=== PATIENT | female | born 1970 | race Caucasian/White ===

== ENCOUNTER 2024-06-16 12:23 | Outpatient (CLI) | payer MEDICAID, SELFPAY ==
[2024-06-16 16:46] LABS: Basophils # 0.1 K/mm3 (0-0.2); Eosinophils # 0.1 K/mm3 (0.0-0.4); Eosinophils % 2.2 % (0.1-12.0); Hemoglobin 12.9 g/dL (12.2-16.2); Lymphocytes % 39.2 % (10-50); Mean Corpuscular HGB Conc 33.1 g/dL (31.8-35.4); Mean Corpuscular Hemoglobin 30.8 pg (27.0-31.2); Mean Corpuscular Volume 93.2 fl (81-99); Mean Platelet Volume 7.1 fl (7.4-10.4); Monocytes # 0.3 K/mm3 (0.1-1.0); Monocytes % 6.6 % (1.7-9.3); Neutrophils # 2.6 K/mm3 (1.8-7.8); Platelet Count 330 K/mm3 (142-424); Red Blood Count 4.19 M/mm3 (4.20-5.40); Red Cell Distribution Width 14.2 % (11.5-17.5); White Blood Count 5.1 K/mm3 (4.8-10.8)
[2024-06-16 17:14] LABS: Erythrocyte Sedimentation Rate 16 mm/hr (0-30)
[2024-06-16 17:18] LABS: Alanine Aminotransferase 26 U/L (12-78); Albumin Level 4.3 g/dl (3.5-5.0); Albumin/Globulin Ratio 1.9 (1.1-1.8); Alkaline Phosphatase 90 U/L (38-126); Anion Gap 7.8 mEq/L (5-15); Aspartate Amino Transferase 28 U/L (14-36); Bilirubin,Total 0.6 mg/dl (0.2-1.3); Blood Urea Nitrogen 13 mg/dl (7-17); Calcium 8.8 mg/dl (8.4-10.2); Carbon Dioxide 26 mmol/L (22.0-30.0); Chloride 105 mmol/L (98-107); Estimated Glomerular Filt Rate 87 ml/min (>60); GFR (African American) 105 ML/MIN (>60); Globulin 2.3 g/dL (1.3-3.2); Glucose 80 mg/dl (74-100); Potassium 3.8 mmoL/L (3.5-5.1); Sodium 135 mmol/L (136-145); Total Protein,Serum 6.6 g/dl (6.3-8.2); Uric Acid 4.2 mg/dl (2.5-6.2)
[2024-06-16 17:36] LABS: 25-OH Vitamin D, Total 39.8 ng/mL (30-100)
[2024-06-16 18:16] LABS: Hemoglobin A1C 5.4 % (4.0-6.0)
[2024-06-16 19:25] LABS: Ferritin 75.7 ng/ml (11.1-264)
[2024-06-16 21:40] LABS: Thyroid Stimulating Hormone 1.68 uIU/mL (0.465-4.68)
[2024-06-16 21:59] LABS: Vitamin B12 525 pg/mL (239-931)
[2024-06-17 11:59] LABS: RA Latex Turbid. <10.0 IU/mL (<14.0)
[2024-06-19 11:16] LABS: Lyme B. burgdorferi PCR Blood Negative (Negative)
[2024-07-09 08:36] LABS: Antinuclear Antibodies, IFA POSITIVE
== END 2024-06-16 23:59 | disposition home or self-care (01) ==
LOC: LAB.DROPOF 06-17 12:23
PROVIDERS: PCP Nurse Practitioner Family; Visit Provider Nurse Practitioner Family
DX: M25.50 Pain in unspecified joint (principal); R20.0 Anesthesia of skin; R20.2 Paresthesia of skin; M79.10 Myalgia, unspecified site
CPT/HCPCS: 80050; 80053; 82306; 82607; 82728; 83036; 83735; 84443; 84550; 85025; 85651; 86038; 86431; 87476

== ENCOUNTER 2024-11-04 13:38 | Outpatient (CLI) | payer MEDICAID, SELFPAY ==
--- NOTE | 2024-11-04 13:39 | MM_ITS ---
PROCEDURE INFORMATION: Exam: MG Bilateral Screening 3D Mammography Exam date and time: 11/04/2024 1:47 PM Age: 54 years old Clinical indication: Screening. No family history of breast cancer. TECHNIQUE: Imaging protocol: Bilateral Screening tomosynthesis and 2D mammography including computer-aided detection (CAD) when performed. COMPARISON: 1. MG MA-MAMMO SCREENING 3D TIERRA BILATERAL 02/08/2024 2:06 PM 2. MG MA-MAMMO ADDITIONAL VIEWS 3D TIERRA LT 07/19/2022 2:18 PM 3. MG MA-MAMMO SCREENING 3D TIERRA BILATERAL 07/13/2022 12:27 PM 4. MG MA-MAMMO SCREENING 3D TIERRA BILATERAL 12/31/2019 2:49 PM FINDINGS: MAMMOGRAPHY: Breast composition: There are scattered areas of fibroglandular density. Mass: None. Architectural distortion: None. Calcifications: No suspicious calcifications. Asymmetric density: None. Skin thickening: None. Axillary adenopathy: None. IMPRESSION: No mammographic evidence of malignancy. Annual screening is recommended unless otherwise clinically indicated. ASSESSMENT: BI-RADS Category 1: Negative.
== END 2024-11-04 23:59 | disposition home or self-care (01) ==
LOC: RAD 13:39
PROVIDERS: PCP Nurse Practitioner Family; Visit Provider Obstetrics & Gynecology
DX: Z12.31 Encounter for screening mammogram for malignant neoplasm of breast (principal)
CPT/HCPCS: 77063; 77067

== ENCOUNTER 2025-01-06 12:08 | Outpatient (CLI) | payer MEDICAID, SELFPAY ==
--- NOTE | 2025-01-06 11:45 | CA_ITS ---
FINAL REPORT TECHNIQUE: Ultrasound images of the deep venous system were obtained from the left groin to the calf veins. CLINICAL HISTORY: pain in posterior left leg FINDINGS: The deep venous system is normally compressible. Normal flow is identified. There is a 3.1 cm fluid collection in the popliteal fossa consistent with a Godinez's cyst. IMPRESSION: No evidence of left lower extremity DVT. Reviewed, Interpreted and Dictated by Papo Us MD Transcribed by Mary Donovan Authenticated and [facility]
--- NOTE | 2025-01-06 12:24 | XR_ITS ---
FINAL REPORT CLINICAL HISTORY: right knee pain and swelling FINDINGS: RIGHT KNEE Three views were obtained. There is no fracture or dislocation. The joint spaces appear normal. There is soft tissue edema anterior to the patella measuring 1.5 cm. IMPRESSION: Soft tissue edema without acute bony abnormality. Reviewed, Interpreted and Dictated by Papo Us MD Transcribed by Mary Donovan Authenticated and [facility]
--- NOTE | 2025-01-06 12:24 | XR_ITS ---
FINAL REPORT CLINICAL HISTORY: left knee pain and swelling FINDINGS: LEFT KNEE Three views were obtained. There is no fracture or dislocation. There are minimal hypertrophic changes at the medial and lateral joint margins. Minimal joint effusion is identified. There is soft tissue edema anterior to the patella measuring 1.7 cm. IMPRESSION: Soft tissue edema without acute bony abnormality. Reviewed, Interpreted and Dictated by Papo Us MD Transcribed by Mary Donovan Authenticated and [facility]
== END 2025-01-06 23:59 | disposition home or self-care (01) ==
LOC: RT 12:09
PROVIDERS: PCP Nurse Practitioner Family; Visit Provider Nurse Practitioner Family
DX: M79.89 Other specified soft tissue disorders (principal); M25.561 Pain in right knee; M25.562 Pain in left knee; M25.461 Effusion, right knee; M25.462 Effusion, left knee
CPT/HCPCS: 73562; 93971

== ENCOUNTER 2025-01-20 12:28 | Outpatient (CLI) | payer MEDICAID, SELFPAY ==
[2025-01-20 13:27] LABS: Basophils # 0.1 K/mm3 (0-0.2); Basophils % 0.8 % (0.1-2.0); Eosinophils # 0.4 Kmm3 (0.0-0.4); Eosinophils % 6.2 % (0.1-12.0); Hematocrit 34.1 % (37.0-47.0); Hemoglobin 10.9 g/dL (12.2-16.2); Immature Granulocytes # 0.02 10^3uL; Immature Granulocytes % 0.3 %; Lymphocytes # 1.9 K/mm3 (0.7-4.5); Lymphocytes % 29.5 % (10-50); Mean Corpuscular Hemoglobin 29.1 pg (27.0-31.2); Mean Corpuscular Volume 91.2 fl (81-99); Mean Platelet Volume 8.7 fl (7.4-10.4); Monocytes # 0.6 K/mm3 (0.1-1.0); Monocytes % 9.1 % (1.7-9.3); Neutrophils # 3.6 K/mm3 (1.8-7.8); Neutrophils % 54.1 % (37.0-80.0); Nucleated Red Blood Cells # 0 10^3/uL; Nucleated Red Blood Cells % 0 %; Platelet Count 311 K/mm3 (142-424); Red Blood Count 3.74 M/mm3 (4.20-5.40); Red Cell Distribution Width 13.9 % (11.5-17.5); White Blood Count 6.6 K/mm3 (4.8-10.8)
[2025-01-20 14:09] LABS: 25-OH Vitamin D, Total 43.9 ng/mL (30-100)
[2025-01-20 14:42] LABS: Vitamin B12 631 pg/mL (239-931)
[2025-01-24 09:50] LABS: Lyme B. burgdorferi PCR Blood Negative (Negative)
== END 2025-01-20 23:59 | disposition home or self-care (01) ==
LOC: LAB 12:29
PROVIDERS: PCP Nurse Practitioner Family; Visit Provider Nurse Practitioner Family
DX: S70.362A Insect bite (nonvenomous), left thigh, initial encounter (principal); T14.8XXA Other injury of unspecified body region, initial encounter; M79.7 Fibromyalgia; W57.XXXA Bitten or stung by nonvenomous insect and other nonvenomous arthropods, initial encounter; E53.8 Deficiency of other specified B group vitamins
CPT/HCPCS: 36415; 82306; 82607; 85025; 87476

== ENCOUNTER 2025-02-10 16:53 | Outpatient (CLI) | payer MEDICAID, SELFPAY ==
--- OUTSIDE RECORDS SUMMARY | 2023-12-26 05:45 | XMS_ITS ---
Author Organization [facility] 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 fractured left hand. XR taken 12/20 Encounters Encounter Location Date Provider Diagnosis [facility] Office [address] [place] [phone] 12/26/2023 SOPHIA DEJESUS Plan Of Treatment No Information Progress Notes * Linda HARVEYOB:1970 (54 yo F)Acc No.[id number]:12/26/2023 Progress Notes Patient: Mily URIBE Provider: Alli DEJESUS MD :1970 A ge:53 Y S ex:Female Date:12/26/2023 Address:[address] [place] [address] , [address], [id number] Pcp: Subjective: * Chief Complaints: * 1 . Patient presents today for follow-up after Emergency Room visit to [facility] . fractured left hand. XR taken 12/20. * HPI: C onstitutional: 53 year old female presents with c/o the following: _ . Injury _ . Dominant hand is _ . The patients pain level on a scale of 1 to 10 is _ .? Pain is described as _ . This has been going on for approximately _ . Symptoms occur _ . Associated symptoms include _ . Any prior treatment for this problem? _ . Consultation T he patient is referred by to determine definitive care. The consultation report from our visit will be provided with our findings and planned follow up. Prior testing? Y es/No? Y es Are you Diabetic? Y es/No: _ ___ QuickDASH _ ____. O steoporosis Assessment:: Are you being seen today for a fracture? Y es/No? _ ____ H istory: Roomer details R oom number . * ROS: C ardiology: Patient denies c irculation problems. R espiratory: Shortness of breath N o. W heezing N o. ? M usculoskeletal: Joint pain p er HPI. N eurology: Tingling p er HPI. * Medical History: Objective: * Vitals: * Examination: G eneral examination: I MPRESSION: 1. Acute nondisplaced intra-articular fracture of the distal left radius. Assessment: Plan: * Treatment: * Billing Information: * Visit Code: * Procedure Codes: Images * Examination/be2 Examination/be1 * Electronic signature of LINA DEJESUS M.D. on 02/10/2025 at 04:55 PM EDT Sign off status: Pending * Provider: Alli DEJESUS MD Date: 0 12/26/2023 Generated for Mabel goldstein/Denise/Brandy on: 02/10/2025 04:55 PM EDT History and Physical Notes * HPI (History of Present Illness) Category Sub-Category Detail Notes Category Not es Constitutional Dominant hand is This has been going on for approximately Symptoms occur Associated symptoms include Any prior treatment for this problem? __ the following: The patients pain level on a scale of 1 to 10 is Pain is described as Injury Prior testing? Yes/No?: Yes Consultation The patient is refer red by to determine definitive care. The consultation report from our visit will be provided with our findings and planned follow up QuickDASH Are you Diabetic? Yes/No:: ____ Osteoporosis Assessment: Are you being seen toda y for a fracture? Yes/No?: History Roomer details Room number: . Examination Category Sub-Category Detail Notes Category Not es General examination IMPRESSION: 1. Acute nondisplaced intra-articular fracture of the distal left radius.
--- OUTSIDE RECORDS SUMMARY | 2025-02-10 16:55 | XMS_ITS | Patient Health Record ---
Author Organization [facility] Address [address] [place] [phone] Care Team Providers Care Neurology Technician Name Role Phone Paddy Hui APRN Primary Care Provider SOPHIA Carbajal [facility] [phone] Reason For Referral No Information Plan Of Treatment No Information Insurance Providers Payer Name Payer Address Payer Phone Subscriber Number Group Number Insured Name Patient Relationship to Insured Coverage Start Date Coverage End Date [employer] [address] [place], [place] [id number] Mily Castillo Self - patient is the insured
--- NOTE | 2025-02-10 17:00 | MR_ITS ---
PROCEDURE INFORMATION: Exam: MR Left Lower Extremity Joint Without Contrast, Knee Exam date and time: 02/10/2025 4:59 PM Age: 54 years old Clinical indication: Swelling in left knee , pain , popping and instability to left knee , unknown injury; Additional info: Knee pain TECHNIQUE: Imaging protocol: Magnetic resonance imaging of the left lower extremity joint without contrast. Exam focused on the knee. COMPARISON: CR XR KNEE LT 3V 01/06/2025 12:38 PM FINDINGS: Bones/joints: Moderate increased T2 signal involving the medial tibial plateau has differential diagnosis of edema related to arthrosis versus bone contusion. Severe medial and patellofemoral compartment arthrosis. Moderate lateral compartment arthrosis. Moderate volume joint effusion. Medial meniscus: Increased STIR/PD signal involving the medial meniscus compatible with moderate degenerative changes without discrete tear. Lateral meniscus: Unremarkable. No tear. Anterior cruciate ligament: Complete ACL tear. Posterior cruciate ligament: Moderate thickening and increased T2 signal of the PCL compatible with mild degenerative changes. Medial capsule and supporting structures: Moderate thickening and increased T2 signal involving the tibial segment of the MCL compatible with low-grade injury. Lateral capsule and supporting structures: Unremarkable. No tear. Extensor mechanism of knee: Unremarkable. No tear. Soft tissues: Moderate thickening and increased T2 signal involving the medial head of the gastrocs with split tear at the footprint. IMPRESSION: 1. Complete ACL tear. 2. Moderate thickening and increased T2 signal of the PCL compatible with mild degenerative changes. 3. Moderate thickening and increased T2 signal involving the medial head of the gastrocs with split tear at the footprint. 4. Increased STIR/PD signal involving the medial meniscus compatible with moderate degenerative changes without discrete tear. 5. Moderate thickening and increased T2 signal involving the tibial segment of the MCL compatible with low-grade injury. 6. Moderate increased T2 signal involving the medial tibial plateau has differential diagnosis of edema related to arthrosis versus bone contusion. 7. Severe medial and patellofemoral compartment arthrosis. 8. Moderate lateral compartment arthrosis.
== END 2025-02-10 23:59 | disposition home or self-care (01) ==
LOC: RAD 16:54
PROVIDERS: PCP Nurse Practitioner Family; Visit Provider Physician Assistant
DX: S83.512A Sprain of anterior cruciate ligament of left knee, initial encounter (principal); S86.112A Strain of other muscle(s) and tendon(s) of posterior muscle group at lower leg level, left leg, initial encounter; M17.12 Unilateral primary osteoarthritis, left knee; R93.6 Abnormal findings on diagnostic imaging of limbs
CPT/HCPCS: 73721

== ENCOUNTER 2025-02-17 12:11 | Outpatient (CLI) | payer MEDICAID, SELFPAY ==
--- OUTSIDE RECORDS SUMMARY | 2023-12-26 05:45 | XMS_ITS ---
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 fractured left hand. XR taken 12/20 Encounters Encounter Location Date Provider Diagnosis [facility] Office [address] [place] [phone] 12/26/2023 SOPHIA DEJESUS Plan Of Treatment No Information Progress Notes * Linda HARVEYOB:1970 (54 yo F)Acc No.[id number]:12/26/2023 Progress Notes Patient: Mily URIBE Provider: Alli DEJESUS MD :1970 A ge:53 Y S ex:Female Date:12/26/2023 Address:[address] [place] [address] , [address], [id number] Pcp: Subjective: * Chief Complaints: * 1 . Patient presents today for follow-up after Emergency Room visit to [facility] . fractured left hand. XR taken [...] Electronic signature of LINA DEJESUS M.D. on 02/18/2025 at 10:45 AM EDT Sign off status: Pending * Provider: Alli DEJESUS MD Date: 0 12/26/2023 Generated for Mabel goldstein/Denise/Brandy on: 0 02/18/2025 10:45 AM EDT History and Physical Notes * HPI [...]
--- OUTSIDE RECORDS SUMMARY | 2025-02-11 09:30 | XMS_ITS | Encounter Summary ---
Author Organization Healthcare Address [address] 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 Name Role Phone Mary Ann Betancourt APRN Primary Care Provider [phone] Reason for Visit * Reason Comments Consult * Consultation (Routine) - Closed Specialty Diagnoses / Procedures Referred By Contac t Referred To Contact Rheumatology Diagnoses Positive KRISTEN (antinuclear antibody) Mary Ann Betancourt APRN [address] [place] [address] Phone: tel: fax: [facility] Medicine Specialties [address] [place] [address] Phone: tel: fax: Referral ID Status Reason Start Date Expiration Date V isits Requested Visits Authorized [id number] Closed Specialty Services Required 01/08/2025 07/10/2026 1 1 Encounter Details Date Type Department Care Team (Late st Contact Info) Description 02/11/2025 9:30 AM EDT Consult [facility] Medicine Specialties [address] [place] [address] Dick Osman, JUNITO [address] [place] [address] KRISTEN positive (Primary Dx); Arthralgia of both knees; Fibromyalgia; Raynaud's disease without gangrene; Esophageal dysphagia Social History Tobacco Use Types Packs/Day Years Used Date Smoking Tobacco: Never Smokeless Tobacco: Never Tobacco Cessation:Counseling Given: Not Answered PHQ-2 Answer Date Recorded Patient Health Questionnaire-2 Score 0 02/11/2025 AUDIT-C Answer Date Recorded Q1: How often do you have a drink containing alc ohol? Never 02/11/2025 Average Number of Drinks Not on file 025 Frequency of Binge Drinking Not on file 09/2024 Comments Unknown Sex and Gender Information Value Date Recorded Sex Assigned at Not on file Legal Sex Female 1:34 PM EDT Gender Identity Not on file Sexual Orientation Not on file documented as of this encounter Last Filed Vital Signs Vital Sign Reading Time Taken Comments Blood Pressure 126/83 02/11/2025 9:45 AM EDT Pulse 58 02/11/2025 9:45 AM EDT Temperature 37 C (98.6 F) 02/11/2025 9:45 AM EDT Respiratory Rate 16 02/11/2025 9:45 AM EDT Oxygen Saturation 97% 02/11/2025 9:45 AM EDT Inhaled Oxygen Concentration - - Weight 88.6 kg (195 lb 5.2 oz) 02/11/2025 9:45 A M EDT Height 154.9 cm (5' 1 ) 02/11/2025 9:45 AM EDT Body Mass Index 36.91 02/11/2025 9:45 AM EDT documented in this encounter Functional Status * Over the past 2 weeks, how often have you been bothered by any of the following problems? Question Answer Date of Assessment Author Little interest or pleasure in doing things Not at all 02/11/2025 9:53 AM EDT Sona Bolaños Feeling down, depressed, or hopeless Not at all 02/11/2025 9:53 AM EDT Sona Bolaños Patient Health Questionnaire -2 Score 0 02/11/2025 9:53 AM EDT Sona Bolaños documented as of this encounter Miscellaneous Notes * Dick Pride, JUNITO - 02/11/2025 10:32 AM EDT Images from the original note were not included. [id number] Dysphagia (Adult) Dysphagia is trouble swallowing. If you have dysphagia, you may have symptoms that include: ?? Choking or coughing when you eat or drink ?? Food getting stuck ?? Drooling ?? Inability to swallow ?? Pain behind the breastbone after swallowing ?? Vomiting after you eat or drink ?? Inhaling into the lungs (aspirating) foods or liquids when you swallow The main causes of dysphagia are problems that affect the mouth, throat or tongue. Dysphagia may becaused by a problem with the tube (esophagus) that carries food from the mouth to the stomach. These include blockage, swelling, or irritation from acid reflux or injury. An infection of the esophagus or an allergic reaction in the esophagus can also cause dysphagia. Problems in the brain, such as a stroke or Parkinson disease, can affect the muscles that coordinate swallowing. Dysphagia is treated by treating the cause. Your healthcare provider may evaluate you using X-ray, special esophagus monitors, a fiber optic look at swallowing, or an upper endoscopy. This test uses a thin, lighted tube (catheter) sent through your mouth to the esophagus. You may be given medicine t o reduce stomach acid or control muscle spasms. If the problem doesn't go away, you may have a procedure to widen (dilate) the esophagus. If you have muscle or nerve problems, you may be advised to see a speech or occupational therapist. They may give you exercises and instructions to help make eating safer. If you have an infection or allergic condition, your healthcare provide will prescribe medicine for it. Home care To help ease the symptoms of dysphagia: ?? Take any medicine you?ve been given exactly as directed. Ask for thickened liquid medicines if you need them. ?? To make eating easier: o Eat slowly. o Eat in a relaxed setting. o Don?t talk while you eat. o Take small bites. Chew slowly and completely before you swallow. o Sit upright during and after meals. Chewing food releases enzymes in your mouth that start the digestive process. Chew soft foods at least 5 to10 times. Chew more dense food, such as meats and vegetables, up to 30 times before swallowing. Count the number of times you chew until you get a sense of how soft the food needs to be before swallowing. o Don't eat dry bread products or meat fibers. o Puree solid foods if needed. Thicken liquids with milk, juice, broth, gravy, or starch to make them easier to swallow. o Ask your healthcare provider if a liquid diet may be better for you. o Ask for a referral to a accounts payable clerk if you are losing weight or having trouble getting enough food each day Follow-up care Follow up with your healthcare provider or as directed. Your healthcare provider can give you information about tests you may need. When to get medical advice Call your healthcare provider or get medical care right away for any of the following: ?? Inability to keep down food or liquid ?? Symptoms get worse quickly ?? Coughing that won't stop ?? Continuing to lose weight ?? Fever of 100.4??F (38??C) or higher, or as directed by your provider ?? Other symptoms as directed by your provider Call 911 Call 911 for any of the following: ?? Trouble breathing ?? Inability to talk ?? Drooling, inability to control secretions ?? Loss of consciousness Last Reviewed Date: 2024 00:00:00 ?? [id number] [employer]. All rights reserved. This information is not intended as a substitute for professional medical care. Always follow your healthcare professional's instructions. * [facility] Dick Osman APRN - 02/11/2025 10:32 AM EDT Images from the original note were not included. [id number] Managing Fibromyalgia ([place]) Fibromyalgia is a chronic illness that causes pain in specific points on the body, stiffness, and fatigue. But it doesn?t have to keep you from doing what you enjoy. You can feel better. You and yourhealthcare provider can work together to develop a plan. Take medications as directed You may be given medications to help reduce pain and improve sleep. Several medications are approved to treat fibromyalgia. Two were originally designed to treat depression. They are duloxetine, and milnacipran. A third, called pregaballin, was developed to treat nerve pain. Other medications include pain relievers such as acetaminophen or stronger narcotics. Thesemay be prescribed short term. NSAIDs (non-steroidal anti-inflammatory drugs) include aspirin, ibuprofen and naproxen are used to relieve pain. Get exercise Gentle exercise can help lessen your pain. Try these tips: ?? Choose activities that are gentle on your joints, such as walking, biking, and swimming or otherwater exercises. ?? Don?t push yourself too hard. Build up your strength and endurance slowly, over time. ?? Stick to it. For the most relief, exercise should become part of your daily life. Get a good night?s rest To help you get more sleep, try the tips below: ?? Sleep only in a bed, not on a couch or chair. ?? Don?t watch TV, read, or work in bed. ?? Go to bed and get up at the same time each day. ?? Try to avoid naps. ?? Avoid alcohol, caffeine, and tobacco for at least 3 hours before going to bed. ?? Avoid fluids in the evening to avoid having to get up to urinate. Other things you can do No one knows what causes fibromyalgia. But stress, poor eating habits, and extra weight can make itworse. These tips may help you feel better: ?? Eat a balanced diet with plenty of fruits and vegetables, whole grains, lean protein, and low-fat or nonfat dairy products. ?? Maintain a healthy weight. ?? Learn ways to reduce or manage the stress in your life. ?? Ask your healthcare provider for resources to help you make changes. Or check out the resources below. ?? Plan your activities. Set small goals and divide them over the day. ?? Pace yourself. Do tougher chores early in the day. Resources ?? Arthritis Foundation www.arthritis.org ?? National Fibromyalgia Association www.fmaware.org ?? [place] Fibromyalgia Syndrome Association www.afsafund.org Last Reviewed Date: 2015 00:00:00 ?? [id number] [employer]. [address] [place] [address]. All rights reserved. This information is not intended as a substitute for professional medical care. Always follow your healthcare professional's instructions. * Lety Freitas - Dick Osman APRN - 02/11/2025 10:32 AM EDT Images from the original note were not included. 61523 Understanding Fibromyalgia People with fibromyalgia tend to have at least 11 of the 18 tender points shown above. Fibromyalgia is a condition that causes pain at specific points on the body, stiffness, and fatigue. What are the symptoms of fibromyalgia? In most cases, you will have tender points on your body. These points are very sore, especially when touched. Finding several of these points helps your healthcare provider diagnose fibromyalgia. Along with the tender points, you may have some or all of the following symptoms: ?? Constant tiredness (fatigue), even after a full night?s sleep (non- restorative sleep) ?? A burning or throbbing pain in many parts of the body (this pain may vary during the day) ?? Stiffness or aching all over your body ?? Numbness or tingling in your arms and legs ?? Trouble sleeping ?? Bowel problems (bloating, diarrhea, constipation) ?? Headaches ?? Depression How is fibromyalgia diagnosed? There is no lab test to diagnose fibromyalgia. Instead, your healthcare provider will take your health history and examine your joints and muscles. Certain criteria are used when diagnosing fibromyalgia. Symptoms need to be present for at least 3 months. Tests may be done to rule out other conditions with similar symptoms. Then, together you can design a plan to help you manage your symptoms. How is fibromyalgia treated? Several medications including anti-depressants, NSAIDS (nonsteroidal anti- inflammatory drugs) Pregaballin, and Milnacipran have been helpful to treat fibromyalgia. NSAIDs (nonsteroidal anti-inflammatory drugs) including aspirin, ibuprofen, and naproxen are used to relieve pain. Getting enough sleep, regular exercise, and eating a healthy diet can help manage symptoms. Cognitive behavioral therapy (a form of psychotherapy) can be helpful for fibromyalgia. Some people find alternative treatments such as massage, chiropractic treatments, biofeedback, or acupuncture also helpwith symptoms. For more information go to : http://www.rheumatology.org/I-Am-A/Patient-Caregiver/Diseases-Condition s/Fibromyalgia Last Reviewed Date: 2015 00:00:00 ?? [id number] [employer]. [address] [place] [address], [place] [address]. All rights reserved. This information is not intended as a substitute for professional medical care. Always follow your healthcare professional's instructions. * Lety [facility] - Dick Osman APRN - 02/11/2025 10:32 AM EDT Images from the original note were not included. 48822 Raynaud Disease Your healthcare provider has told you that you have Raynaud disease. It's also called Raynaud phenomenon (RP) or Raynaud syndrome. There's no cure for Raynaud disease. But you can manage it to help prevent attacks. What are the symptoms of Raynaud disease? A Raynaud disease attack is often triggered by cold or stress. During an attack, blood vessels suddenly narrow (called vasospasm). This most often happens in fingers and toes. In rare cases, the nose, ears, nipples, or even tongue are affected. Narrowed blood vessels reduce the blood supply to the area. The area then turns white, blue, or red. The area may feel tingling, numb, or painful. As the attack passes, the blood vessels open. The affected area may turn bright red as it warms up, then returns to normal color. What is the cause of Raynaud disease? With Raynaud disease, it's believed that blood vessels in the affected areas respond too strongly to certain triggers, such as cold. This makes them narrow (called vasospasm) much more than in peoplewithout the disease. Experts don?t know what causes the blood vessels to react so strongly to certain triggers. In between attacks, the blood vessels are normal and healthy. Attacks don?t permanentlydamage the blood vessels. But they may thicken the artery jean. In some cases, Raynaud disease happens along with another disease or condition. This is often a connective tissue disorder, such as lupus, scleroderma, or rheumatoid arthritis. This is called secondary Raynaud disease (as opposed to primary Raynaud disease discussed above) and may be more severe. If this is the case for you, you and your healthcare provider can discuss treatment for the underlying condition. What are the risk factors? Risk factors for Raynaud disease include: ?? Women are more likely to get Raynaud disease than men. ?? Younger people are at higher risk, often ages 15 to 30. ?? Living in colder climates increases risk. ?? Having a family member with Raynaud disease increases your risk. ?? Underlying rheumatoid conditions may increase your risk. What are possible triggers? Triggers for Raynaud disease include: ?? Cold . Even slight temperature changes can cause an attack. This includes walking into the refrigerated section in the food store. ?? Stress. This causes the body to activate certain substances in the blood vessels that tell the vessels to narrow. ?? Caffeine. ?? Smoking. This causes the blood vessels to narrow. It can make the condition worse. ?? Repetitive movements. ?? Certain medicines. These include beta-blockers, migraine medicine, control pills, and others. ?? Injury. ?? Emotions. Being startled can cause an attack of RD. That's because the startle reflex releases substances that tell the vessels to narrow. How is Raynaud disease diagnosed? Your description of your symptoms, a health history, and a physical exam are often enough for a diagnosis. Blood tests and other tests may be done to see if any underlying conditions are present and rule out other problems. How is Raynaud disease treated? There is no known cure for Raynaud disease. But you can learn to manage symptoms and reduce the number and severity of attacks. For most people, staying away from triggers may be enough to limit attacks. Your healthcare provider may advise you to: ?? Take safety steps to help prevent your hands and feet from losing circulation. This includes: o Dressing warmly in cold weather. o Wearing gloves or mittens when your hands may become cold, such as when you use the refrigerator or freezer. o Not keeping the air conditioning at a low temperature in summer. o Staying away from stress and caffeine. o Exercising regularly. This may reduce the number and severity of attacks. o Quitting smoking, if you smoke. Quitting may improve the condition. This is because smoking causes your blood vessels to narrow and reduces blood flow. ?? Soak your hands or feet in warm (not hot) water. Do this at the first sign of an attack. Keep soaking until your skin color returns to normal. In some people, symptoms are lasting or troubling. For these cases, other treatments are a choice. Your healthcare provider can tell you more about these: ?? Prescription medicines. Some medicines that relax and widen blood vessels, such as calcium channel blockers. These may help ease symptoms. ?? Nerve surgery. This is used for severe cases that don?t respond to other treatments. Surgery removes the nerves around the blood vessels in the hands and feet. Without nerve stimulation, the bloodvessels stay more relaxed. They're less likely to become very narrow due to stimuli. Nerves may be blocked using injections in some cases. If attacks are severe, last for a long time, or occur very often, skin damage and sores (skin ulcers) may result. Controlling attacks can help prevent this. When to get medical care The following problems happen rarely, but they can be serious. Call your healthcare provider right away if you notice any of these: ?? Skin infection or sores ?? A finger or toe turns black ?? The skin breaks open on its own ?? A rash ?? A finger or toe joint becomes painful or swollen Last Reviewed Date: 2023 00:00:00 ?? [id number] [employer]. All rights reserved. This information is not intended as a substitute for professional medical care. Always follow your healthcare professional's instructions. * Progress Notes - Dick Osman APRN - 02/11/2025 9:30 AM EDT Images from the original note were not included. Dick Osman APRN Rheumatology Subjective HPI Mily Castillo is a 54 y.o. female with PMH significant for constipation, fms, depression, PTSD, HALLIE,s/p hernia repair, CTS release, ccy, hysterectomy who mentioned to her pcp that she was dx with lupus by an outside rheum with negative blood work and requested second opinion. She was referred here s ubsequently. KRISTEN 1:160 nuclear dot. She is here to get second opinion- she was not happy with them 2/2 communication issues. She is having knee pain- x1 month, had an mri recently; previous rheum did xrays but never got results. Knee is swollen constantly. Worse with cold, heat isn't helping. FMS under control. Cymbalta, tizanidine and gbp. She has had this for years. CCY, double hernia didn't fix though she was told. Can have acute flares that paralyze her. Had whole body pain primarily of the lower back. ?lupus from blood work. Chronic joint pain. Joints affected: Knees- AMS a few minutes until active; swelling L knee Whole body- better with movement (stiffness) Vitals: 02/11/25 0945 BP: 126/83 Pulse: 58 Resp: 16 Temp: 37 ??C (98.6 ??F) SpO2: 97% Allergies[1] Current Medications[2] Initial Rheum ROS Rheumatological ROS positive for sicca, raynauds, gerd/dysphagia, Family History: FH of autoimmune diseases? 3 kids all with lupus Social History: Exposure to HCV, HBV, HIV or TB. neg hx IV drug use. neg hx of tobacco use. neg hx of alcohol use or abuse. neg Occupational hx: disabled Review of Systems Constitutional: Positive for fatigue. Musculoskeletal: Positive for arthralgias and joint swelling. Psychiatric/Behavioral: Positive for sleep disturbance. Physical Exam Vitals reviewed. Constitutional: General: She is not in acute distress. Appearance: Normal appearance. She is not ill-appearing, toxic-appearing or diaphoretic. HENT: Head: Normocephalic and atraumatic. Mouth/Throat: Mouth: Mucous membranes are dry. Eyes: Extraocular Movements: Extraocular movements intact. Conjunctiva/sclera: Conjunctivae normal. Cardiovascular: Rate and Rhythm: Normal rate and regular rhythm. Pulses: Normal pulses. Pulmonary: Effort: Pulmonary effort is normal. No respiratory distress. Musculoskeletal: General: No swelling or tenderness. Normal range of motion. Cervical back: Normal range of motion. Right lower leg: No edema. Left lower leg: No edema. Skin: General: Skin is warm and dry. Capillary Refill: Capillary refill takes less than 2 seconds. Coloration: Skin is not jaundiced or pale. Findings: No lesion or rash. Neurological: General: No focal deficit present. Mental Status: She is alert and oriented to person, place, and time. Gait: Gait normal. Psychiatric: Mood and Affect: Mood normal. Behavior: Behavior normal. Thought Content: Thought content normal. The following portions of the chart were reviewed this encounter and updated as appropriate: Patient global assessment: 0/10 Swollen Joint Count: Swollen: 1 Tender Joint Count: Tender: 1 = (x2) CDAI:2 Rapid 3 score: 14.7/30 CDAI Interpretation: 0-2.8 Remission 2.9 -10 Low disease activity 10.1-22.0 Moderate Activity 22.1-76.0 High Activity Assessment and Plan of Care: Plan of care developed with Mily Castillo on (02/11/25): 1. KRISTEN positive (Primary) 2. Arthralgia of both knees KRISTEN positive from an outside director case management with arthralgia both knees, left swelling as well as painful today on exam. MRI done last evening and we will attempt to get those results. We will attemptalso to get her previous rheumatology workup evaluation records. I will perform some element of this evaluation myself as I need to rule out alternative etiologies for her inflammatory joint pain however, most of her joint pain sounds more mechanical in osteoarthritic in nature. I need to check uric acid as I am concerned potentially about gout as she is taking high-dose NSAIDs without much help.I will not make any changes to her medication regimen of the current time. - Antinuclear Antibody (KRISTEN), HEp-2, IgG; Future - Double-Stranded DNA (dsDNA) Antibody, IgG by IFA; Future - C3 Complement; Future - C4 Complement; Future - ENAI; Future - ENAII; Future - Protein, Random, Urine with Creatinine; Future - Burdick (VIANEY) Antibody, IgG; Future - Thyroid Peroxidase Antibody; Future - C-Reactive Protein, Plasma; Future - Sedimentation Rate, Automated; Future - CBC and Differential; Future - Comprehensive Metabolic Panel, Plasma; Future - Uric acid; Future 3. Fibromyalgia Presumed diagnosis from a prior director case management in his well-controlled currently on gabapentin, tizanidine, and Cymbalta. Am uncertain about her subtype as well as the patient is a bit uncertain as towhy she was given these medicines though has improved. 4. Raynaud's disease without gangrene 5. Esophageal dysphagia No symptoms consistent with crest other than esophageal dysphagia and Raynaud's, no sclerodactyly, calcinosis, telangiectasias noted on exam. We will check systemic sclerosis antibodies for completeness. - Anti-scleroderma antibody; Future - RNA Polymerase III Antibody, IgG; Future - Centromere Antibody, IgG; Future RTC 4 mo Patient is agreeable to the above treatment plan and had no further questions. Thanks for the opportunity to participate in the care of this patient! If there are any questions or concerns, please reach out to me personally. Thanks! Dick Osman APRN Parts of this note were dictated using [employer] voice recognition software. As a result, errors may occur. When identified, these radial drill operator for plastic errors are corrected, but while every attempt is made to prevent/correct these, errors may still exist. Time Spent: I personally spent a total of minutes on this encounter. This time includes face to face with patient, counseling and discussion and/or coordination of care. minutes on the encounter. Thepatient was counseled about diagnostic results, instruction for management, risk factors reduction, prognosis, compliance with visits and treatment, risks and benefits of treatments options. Prior notes (by external physicians) and results were reviewed by me with independent interpretation of labsand imaging. My note will be sent to PCP and other consulting physicians. [1] No Known Allergies [2] Current Outpatient Medications Medication Sig Dispense Refill doxycycline (Vibramycin) 100 MG capsule TAKE ONE CAPSULE BY MOUTH TWICE DAILY FOR FOURTEEN DAYS -- FINISH ALL MEDICINE -- --TAKE WITH FOOD-- DULoxetine (Cymbalta) [address] capsule TAKE ONE CAPSULE BY MOUTH TWICE DAILY STOP FLUOXETINE FeroSul 325 (65 Fe) MG tablet Take 1 tablet by mouth 2 times a day. gabapentin (Neurontin) 300 MG capsule TAKE ONE CAPSULE BY MOUTH THREE TIMES DAILY MAY CAUSE DROWSINESS hydrOXYzine HCl (Atarax) 50 MG tablet Take 1 tablet by mouth 3 times a day as needed for anxiety. Linzess 145 MCG capsule naproxen (Naprosyn) 500 MG tablet TAKE ONE TABLET BY MOUTH TWICE DAILY --TAKE WITH FOOD-- omeprazole (PriLOSEC) [address] capsule tiZANidine (Zanaflex) 4 MG tablet No current facility-administered medications for this visit. documented in this encounter Plan of Treatment Upcoming Encounters Date Type Department Care Team (Late st Contact Info) Description 06/16/2025 10:30 AM EST Office Visit [facility] Medicine Specialties [address] [place] [address] Dick Osman APRN [address] [place] [address] documented as of this encounter Results * Protein, Random, Urine with Creatinine (02/11/2025 12:01 PM EDT) Protein, Urine 42 mg/dL 02/11/2025 1:10 PM EDT [facility] Creatinine, Urine 336 mg/dL 02/11/2025 1:10 PM EDT [facility] Protein/Creatin ine Ratio 0.1 mg/mg Creat 02/11/2025 1:10 PM EDT [facility] Urine Urine specimen obtained by clean catch procedure / Unknown Non-blood Collection / Unknown 02/11/2025 12:01 PM EDT 02/11/2025 12:01 PM EDT us Dick Osman APRN LAB URINE ORDERABLES Final Res ult [facility] [address] [place] [address] * Centromere Antibody, IgG (02/11/2025 11:21 AM EDT) Centromere Ab, IgG 0 0 - 40 AU/mL 02/12/2025 11:30 PM EDT [facility] ([facility]) Blood Venous blood specimen / Unknown Venipuncture / Unknown 02/11/2025 11:21 AM EDT 02/11/2025 11:21 AM EDT Narrative [facility] ([facility]) - 02/12/2025 11:30 PM EDT INTERPRETIVE INFORMATION: Centromere Ab, IgG 29 AU/mL or Less ............. Negative 30 - 40 AU/mL ................ Equivocal 41 AU/mL or Greater .......... Positive When detected by this multiplex bead assay, the presence of centromere antibodies is mainly associated with CREST syndrome, a variant of systemic sclerosis (SSc). These antibodies target the centromere B, a dominant antigen of the centromeric complex associated with the centromere pattern observed in antinuclear antibody (KRISTEN) testing by IFA. Centromere antibodies may also be seen in a varying percentage of patients with other autoimmune diseases, including diffuse cutaneous SSc, Raynaud syndrome, interstitial pulmonary fibrosis, autoimmune liver disease, systemic lupus erythematosus (SLE) and rheumatoid arthritis (RA). A negative result indicates no detectable IgG antibodies to centromere B. If the result is negative but clinical suspicion for SSc is strong, consider testing for KRISTEN by IFA along with other antibodies associated with SSc, including Scl-70, U3-EDUCATION AND DEVELOPMENT MANAGER, PM/Scl, or Th/To. Performed By: [facility] [address] [place] [address] Efficiency Expert: Bryce Davenport MD, PhD CLIA Number: [id number] Dick Osman APRN LAB BLOOD ORDERABLES Final Res ult [facility] ([facility]) [address] [place] [address] * RNA Polymerase III Antibody, IgG (02/11/2025 11:21 AM EDT) RNA Polymerase III Antibody, IgG 4 0 - 19 Units 02/12/2025 10:51 PM EDT [facility] ([facility]) Blood Venous blood specimen / Unknown Venipuncture / Unknown 02/11/2025 11:21 AM EDT 02/11/2025 11:21 AM EDT Narrative [facility] ([facility]) - 02/12/2025 10:51 PM EDT INTERPRETIVE INFORMATION: RNA Polymerase III Antibody, IgG 19 Units or less ......Negative 20 - 39 Units .........Weak Positive 40 - 80 Units .........Moderate Positive 81 Units or greater ...Strong Positive The presence of RNA polymerase III IgG antibody, when considered in conjunction with other laboratory and clinical findings, is an aid in the diagnosis of systemic sclerosis (SSc) with increased incidence of skin involvement and renal crisis with the diffuse cutaneous form of SSc. RNA polymerase III IgG antibody occur in about 11-23 percent of SSc patients, and typically in the absence of anti-centromere and anti-Scl-70 antibodies. A negative result indicates no detectable IgG antibodies to the dominant antigen of RNA polymerase III and does not rule out the possibility of SSc. False-positive results may also occur due to non-specific binding of immune complexes. Strong clinical correlation is recommended. If clinical suspicion remains, consider additional testing for other antibodies associated with SSc, including centromere, Scl-70, U3-EDUCATION AND DEVELOPMENT MANAGER, PM/Scl, or Th/To. Performed By: [facility] [address] [place] [address] Efficiency Expert: Bryce Davenport MD, PhD CLIA Number: [id number] Dick Osman TOBACCO DIPPER LAB BLOOD ORDERABLES Final Res ult [facility] ([facility]) [address] [place] [address] * Anti-scleroderma antibody (02/11/2025 11:21 AM EDT) SCLERODERMA (SCL-70) (VIANEY) ANTIBODY, IGG 1 0 - 40 AU/mL 02/12/2025 11:30 PM EDT [facility] ([facility]) Blood Venous blood specimen / Unknown Venipuncture / Unknown 02/11/2025 11:21 AM EDT 02/11/2025 11:21 AM EDT Narrative [facility] ([facility]) - 02/12/2025 11:30 PM EDT INTERPRETIVE INFORMATION: Scleroderma (Scl-70) (VIANEY) Ab, IgG 29 AU/mL or Less ............. Negative 30 - 40 AU/mL ................ Equivocal 41 AU/mL or Greater .......... Positive The presence of Scl-70 antibodies (also referred to as topoisomerase I, cathy-I or LANCE) is considered diagnostic for systemic sclerosis (SSc). Scl-70 antibodies alone are detected in about 20 percent of SSc patients and are associated with the diffuse form of the disease, which may include specific organ involvement and poor prognosis. Scl-70 antibodies have also been reported in a varying percentage of patients with systemic lupus erythematosus (SLE). Scl-70 (cathy-1) is a DNA binding protein and anti-DNA/DNA complexes in the sera of SLE patients may bind to cathy-I, leading to a false-positive result. The presence of Scl-70 antibody in sera may also be due to contamination of recombinant Scl-70 with DNA derived from cellular material used in immunoassays. Strong clinical correlation is recommended if both Scl-70 and dsDNA antibodies are detected. Negative results do not necessarily rule out the presence of SSc. If clinical suspicion remains, consider further testing for centromere, RNA polymerase III and U3-EDUCATION AND DEVELOPMENT MANAGER, PM/Scl, or Th/To antibodies. Performed By: [facility] [address] [place] [address] Efficiency Expert: Bryce Davenport MD, PhD CLIA Number: [id number] us Dick Osman APRN LAB BLOOD ORDERABLES Final Res ult Performing Organization Address City/[facility]/ZIP Co de Phone Number [facility] ([facility]) [address] [place] [address] * Uric acid (02/11/2025 11:21 AM EDT) Uric Acid, Plasma 3.9 3.1 - 7.1 mg/dL 02/11/2025 1:21 PM EDT [facility] Blood Venous blood specimen / Unknown Venipuncture / Unknown 02/11/2025 11:21 AM EDT 02/11/2025 11:21 AM EDT us Dick Osman APRN LAB BLOOD ORDERABLES Final Res ult [facility] [address] [place] [address] * (ABNORMAL) Comprehensive Metabolic Panel, Plasma (02/11/2025 11:21 AM EDT) Glucose, Plasma 111(H) 74 - 99 mg/dL 02/11/2025 1:21 PM EDT [facility] BUN, Plasma 13 7 - 21 mg/dL 02/11/2025 1:21 PM EDT [facility] Creatinine, Plasma 0.76 0.60 - 1.10 mg/dL 02/11/2025 1:21 PM EDT [facility] BUN/Creatinine Ratio 17 02/11/2025 1:21 PM EDT [facility] Sodium, Plasma 144 136 - 145 mmol/L 02/11/2025 1:21 PM EDT [facility] Potassium, Plasma 3.4(L) 3.6 - 4.9 mmol/L 02/11/2025 1:21 PM EDT [facility] Chloride, Plasma 107 97 - 107 mmol/L 02/11/2025 1:21 PM EDT [facility] CO2, Plasma 25 22 - 29 mmol/L 02/11/2025 1:21 PM EDT [facility] Anion Gap 12 6 - 16 mmol/L 02/11/2025 1:21 PM EDT [facility] Total Calcium, Plasma 8.7(L) 8.9 - 10.2 mg/dL 02/11/2025 1:21 PM EDT [facility] Total Protein 6.4 6.3 - 7.9 g/dL 02/11/2025 1:21 PM EDT [facility] Albumin, Plasma 4.1 3.5 - 5.2 g/dL 02/11/2025 1:21 PM EDT [facility] AST, Plasma 19 10 - 35 U/L 02/11/2025 1:21 PM EDT [facility] ALT, Plasma 15 10 - 35 U/L 02/11/2025 1:21 PM EDT [facility] Alkaline Phosphatase, Plasma 117 46 - 142 U/L 02/11/2025 1:21 PM EDT [facility] Total Bilirubin, Plasma 0.3 0.2 - 1.1 mg/dL 02/11/2025 1:21 PM EDT [facility] eGFRcr 92.1 mL/min/1.7 3m*2 02/11/2025 1:21 PM EDT [facility] Comment:Reported eGFRcr in m L/min/1.73m2 is based the CKD-EPI 2020 equation that does not use a race coefficient. Blood Venous blood specimen / Unknown Venipuncture / Unknown 02/11/2025 11:21 AM EDT 02/11/2025 11:21 AM EDT us Dick Osman APRN LAB BLOOD ORDERABLES Final Res ult [facility] [address] [place] [address] * (ABNORMAL) CBC and Differential (02/11/2025 11:21 AM EDT) WBC Count 6.45 3.70 - 10.30 10*3/uL LAB HEMATOLOGY METHOD 02/11/2025 1:09 PM EDT [facility] RBC Count 3.76(L) 3.90 - 5.20 10*6/uL LAB HEMATOLOGY METHOD 02/11/2025 1:09 PM EDT [facility] HGB 11.2 11.2 - 15.7 g/dL LAB HEMATOLOGY METHOD 02/11/2025 1:09 PM EDT [facility] HCT 33.4(L) 34.0 - 45.0 % LAB HEMATOLOGY METHOD 02/11/2025 1:09 PM EDT [facility] Platelet Count 342 155 - 369 10*3/uL LAB HEMATOLOGY METHOD 02/11/2025 1:09 PM EDT [facility] MCV 89 79 - 98 fL LAB HEMATOLOGY METHOD 02/11/2025 1:09 PM EDT [facility] MCH 29.8 26.0 - 32.0 pg LAB HEMATOLOGY METHOD 02/11/2025 1:09 PM EDT [facility] MCHC 33.5 30.7 - 35.5 g/dL LAB HEMATOLOGY METHOD 02/11/2025 1:09 PM EDT [facility] RDW 14.1 11.5 - 14.5 % LAB HEMATOLOGY METHOD 02/11/2025 1:09 PM EDT [facility] MPV 9.3 8.8 - 12.5 fL LAB HEMATOLOGY METHOD 02/11/2025 1:09 PM EDT [facility] nRBC 0.0 <=0.0 per 100 WBCs LAB HEMATOLOGY METHOD 02/11/2025 1:09 PM EDT [facility] Differential Type Automated LAB HEMATOLOGY METHOD 02/11/2025 1:09 PM EDT [facility] Neutrophils % 53 % LAB HEMATOLOGY METHOD 02/11/2025 1:09 PM EDT [facility] Lymphocytes % 32 % LAB HEMATOLOGY METHOD 02/11/2025 1:09 PM EDT [facility] Monocytes % 9 % LAB HEMATOLOGY METHOD 02/11/2025 1:09 PM EDT [facility] Eosinophils % 5 % LAB HEMATOLOGY METHOD 02/11/2025 1:09 PM EDT [facility] Basophils % 1 % LAB HEMATOLOGY METHOD 02/11/2025 1:09 PM EDT [facility] Immature Granulocytes % 0 % LAB HEMATOLOGY METHOD 02/11/2025 1:09 PM EDT [facility] Neutrophils Absolute 3.49 1.60 - 6.10 10*3/uL LAB HEMATOLOGY METHOD 02/11/2025 1:09 PM EDT [facility] Lymphocytes Absolute 2.04 1.20 - 3.90 10*3/uL LAB HEMATOLOGY METHOD 02/11/2025 1:09 PM EDT [facility] Monocytes Absolute 0.56 0.30 - 0.90 10*3/uL LAB HEMATOLOGY METHOD 02/11/2025 1:09 PM EDT [facility] Eosinophils Absolute 0.30 0.00 - 0.50 10*3/uL LAB HEMATOLOGY METHOD 02/11/2025 1:09 PM EDT [facility] Basophils Absolute 0.05 0.00 - 0.10 10*3/uL LAB HEMATOLOGY METHOD 02/11/2025 1:09 PM EDT [facility] Immature Granulocytes Absolute 0.01 0.00 - 0.06 10*3/uL LAB HEMATOLOGY METHOD 02/11/2025 1:09 PM EDT [facility] Blood Venous blood specimen / Unknown Venipuncture / Unknown 02/11/2025 11:21 AM EDT 02/11/2025 11:21 AM EDT Narrative [facility] - 02/11/2025 1:09 PM EDT Therapeutic decision making should be based on absolute values, rather than percentages. Dick Osman APRN LAB BLOOD ORDERABLES Final Res ult [facility] [address] [place] [address] * Sedimentation Rate, Automated (02/11/2025 11:21 AM EDT) Sedimentation Rate 3 <30 mm/hr 2024 1:34 PM EDT [facility] Blood Venous blood specimen / Unknown Venipuncture / Unknown 02/11/2025 11:21 AM EDT 02/11/2025 11:21 AM EDT Dick Osman APRN LAB BLOOD ORDERABLES Final Res ult Performing Organization Address [facility]/[place] [address] * C-Reactive Protein, Plasma (02/11/2025 11:21 AM EDT) Pathologist [facility] [place] CRP, Plasma 3.6 <=8.0 mg/L 02/11/2025 1:21 PM EDT [facility] Blood Venous blood specimen / Unknown Venipuncture / Unknown 02/11/2025 11:21 AM EDT 02/11/2025 11:21 AM EDT Narrative [facility] - 02/11/2025 1:21 PM EDT This CRP test is appropriate for assessment of infection, systemic inflammation and/or tissue injury. To assess cardiovascular disease risk order high sensitivity CRP (CRPH). Dick Osman TOBACCO DIPPER LAB BLOOD ORDERABLES Final Res ult Performing Organization Address [facility] [place] [address] * Thyroid Peroxidase Antibody (02/11/2025 11:21 AM EDT) [facility] Thyroid Peroxidase Antibody <5 <=8 IU/mL 02/11/2025 3:38 PM EDT [facility] Blood Venous blood specimen / Unknown Venipuncture / Unknown 02/11/2025 11:21 AM EDT 02/11/2025 11:21 AM EDT Dick Osman TOBACCO DIPPER LAB BLOOD ORDERABLES Final Res ult Performing Organization Address City/[facility] [place] [address] * Burdick (VIANEY) Antibody, IgG (02/11/2025 11:21 AM EDT) Pathologist [facility] [place] Burdick (VIANEY) Antibody, IgG 4 0 - 40 AU/mL 02/12/2025 11:30 PM EDT [facility] ([facility]) Serum 02/11/2025 11:2 1 AM EDT 02/11/2025 11:21 AM EDT Narrative [facility] - 02/12/2025 11:30 PM EDT INTERPRETIVE INFORMATION: Burdick (VIANEY) Antibody, IgG 29 AU/mL or Less ............. Negative 30 - 40 AU/mL ................ Equivocal 41 AU/mL or Greater .......... Positive Burdick antibody is highly specific (greater than 90 percent) for systemic lupus erythematosus (SLE) but only occurs in 30-35 percent of SLE cases. The presence of antibodies to Burdick has variable associations with SLE clinical manifestations. Performed By: [facility] [address] [place] [address] Efficiency Expert: Bryce Davenport MD, PhD CLIA Number: [id number] Dick Osman APRN LAB REF LAB BLOOD AND FLUID OR D Final Result [facility]) [address] [place], [place] [id number] * ENAII (02/11/2025 11:21 AM EDT) SSA-52 (RO52) (VIANEY) Antibody, IgG 1 0 - 40 AU/mL 02/12/2025 11:30 PM EDT [facility] ([facility]) SSA-60 (RO60) (VIANEY) Antibody, IgG 0 0 - 40 AU/mL 02/12/2025 11:30 PM EDT [facility] ([facility]) SSB (LA) (VIANEY) Antibody, IgG 0 0 - 40 AU/mL 02/12/2025 11:30 PM EDT [facility] ([facility]) Blood Venous blood specimen / Unknown Venipuncture / Unknown 02/11/2025 11:21 AM EDT 02/11/2025 11:21 AM EDT Narrative [facility] [employer] - 02/12/2025 11:30 PM EDT INTERPRETIVE INFORMATION: SSA-52 (Ro52) (VIANEY) Antibody, IgG 29 AU/mL or Less ............. Negative 30 - 40 AU/mL ................ Equivocal 41 AU/mL or Greater .......... Positive SSA-52 (Ro52) and/or SSA-60 (Ro60) antibodies are associated with a diagnosis of Sjogren syndrome, systemic lupus erythematosus (SLE), and systemic sclerosis. SSA-52 antibody overlaps significantly with the major SSc-related antibodies. SSA-52 (Ro52) antibody occurs frequently in patients with inflammatory myopathies, often in the presence of interstitial lung disease. REFERENCE INTERVAL: SSA-60 (Ro60) (VIANEY) Antibody, IgG 29 AU/mL or Less ............. Negative 30 - 40 AU/mL ................ Equivocal 41 AU/mL or Greater .......... Positive INTERPRETIVE INFORMATION: SSB (La) (VIANEY) Ab, IgG 29 AU/mL or Less ............. Negative 30 - 40 AU/mL ................ Equivocal 41 AU/mL or Greater .......... Positive SSB (La) antibody is seen in 50-60% of Sjogren syndrome cases and is specific if it is the only VIANEY antibody present. 15-25% of patients with systemic lupus erythematosus (SLE) and 5-10% of patients with progressive systemic sclerosis (PSS) also have this antibody. Performed By: [facility] [address] [place] [address] Efficiency Expert: Bryce Davenport MD, PhD CLIA Number: [id number] us Dick Osman APRN LAB BLOOD ORDERABLES Final Res ult [facility] ([facility]) [address] [place] [address] * ENAI (02/11/2025 11:21 AM EDT) Burdick/EDUCATION AND DEVELOPMENT MANAGER (VIANEY) Ab, IgG 2 0 - 19 Units 02/13/2025 11:28 PM EDT [facility] ([facility]) Blood Venous blood specimen / Unknown Venipuncture / Unknown 02/11/2025 11:21 AM EDT 02/11/2025 11:21 AM EDT Narrative [facility]) - 02/13/2025 11:28 PM EDT INTERPRETIVE INFORMATION: Burdick/EDUCATION AND DEVELOPMENT MANAGER (VIANEY) Antibody, IgG 19 Units or Less ............. Negative 20 to 39 Units ............... Weak Positive 40 to 80 Units ............... Moderate Positive 81 Units or greater .......... Strong Positive Burdick/EDUCATION AND DEVELOPMENT MANAGER antibodies are frequently seen in patients with mixed connective tissue disease (MCTD) and are also associated with other systemic autoimmune rheumatic diseases (SARDs) such as systemic lupus erythematosus (SLE), systemic sclerosis, and myositis. Antibodies targeting the Burdick/EDUCATION AND DEVELOPMENT MANAGER antigenic complex also recognize Burdick antigens, therefore, the Burdick antibody response must be considered when interpreting these results. Performed By: [facility] [address] [place] [address] Efficiency Expert: Bryce Davenport MD, PhD CLIA Number: [id number] Dick Osman APRN LAB BLOOD ORDERABLES Final Res ult Performing Organization Address City/[facility]/ZIP Co de Phone Number [facility]) [address] [place] [address] * C4 Complement (02/11/2025 11:21 AM EDT) C4 Complement 17 13 - 36 mg/dL 02/11/2025 1:04 PM EDT [facility] Blood Venous blood specimen / Unknown Venipuncture / Unknown 02/11/2025 11:21 AM EDT 02/11/2025 11:21 AM EDT Dick Osman APRN LAB BLOOD ORDERABLES Final Res ult [facility] [address] [place] [address] * C3 Complement (02/11/2025 11:21 AM EDT) C3 Complement 119 84 - 166 mg/dL 02/11/2025 1:04 PM EDT [facility] Blood Venous blood specimen / Unknown Venipuncture / Unknown 02/11/2025 11:21 AM EDT 02/11/2025 11:21 AM EDT Dick Osman APRN LAB BLOOD ORDERABLES Final Res ult [facility] [address] [place] [address] * Double-Stranded DNA (dsDNA) Antibody, IgG by IFA (02/11/2025 11:21 AM EDT) Double-Strande d DNA (dsDNA) Ab IgG IFA <1:10 <1:10 02/13/2025 4:58 PM EDT [facility] ([facility]) Blood Venous blood specimen / Unknown Venipuncture / Unknown 02/11/2025 11:21 AM EDT 02/11/2025 11:21 AM EDT Narrative [facility]) - 02/13/2025 4:58 PM EDT INTERPRETIVE INFORMATION: Double-Stranded DNA (dsDNA) Antibody, IgG by IFA (using Crithidia luciliae) Positivity for anti-double stranded DNA (anti-dsDNA) IgG antibody is a diagnostic criterion of systemic lupus erythematosus (SLE). The presence of the anti-dsDNA IgG antibody is identified by IFA titer (Crithidia luciliae indirect fluorescent test [DAVID]). DAVID is highly specific for SLE with a sensitivity of 50-60 percent. Some patients with early or inactive SLE may be positive for anti-dsDNA IgG by DEIDRE but negative by DAVID. If the DAVID result is negative but the patient has a positive DEIDRE and clinical suspicion remains, consider antinuclear antibody (KRISTEN) testing by IFA. Additional information and recommendations for testing may be found at [email or web address]. Performed By: [facility] [address] [place] [address] Efficiency Expert: Bryce Davenport MD, PhD CLIA Number: [id number] Dick Osman APRN LAB BLOOD ORDERABLES Final Res ult [facility]) [address] [place] [address] * Antinuclear Antibody (KRISTEN), HEp-2, IgG (02/11/2025 11:21 AM EDT) KRISTEN INTERPRETIVE COMMENT See Note 02/14/2025 7:11 AM EDT [facility] ([facility]) Anti Nuc Ab Screen <1:80 <1:80 02/14/2025 7:11 AM EDT [facility] ([facility]) Blood Venous blood specimen / Unknown Venipuncture / Unknown 02/11/2025 11:21 AM EDT 02/11/2025 11:21 AM EDT Narrative [facility] ([facility]) - 02/14/2025 7:11 AM EDT Antinuclear antibodies by IFA negative for homogeneous, speckled, nucleolar, centromere, and nuclear dots patterns. Cytoplasmic antibodies by IFA negative for reticular/AMA, discrete/GW body-like, polar/golgi-like, rods and rings, and cytoplasmic speckled patterns. INTERPRETIVE INFORMATION: KRISTEN Interpretive Comment Presence of antinuclear antibodies (KRISTEN) is a hallmark feature of systemic autoimmune rheumatic diseases (SARD). However, KRISTEN lacks diagnostic specificity and is associated with a variety of diseases (cancers, autoimmune, infectious, and inflammatory conditions) and may also occur in healthy individuals in varying prevalence. The lack of diagnostic specificity requires confirmation of positive KRISTEN by more specific serologic tests. KRISTEN (nuclear reactivity) positive patterns reported include centromere, homogeneous, nuclear dots, nucleolar, or speckled. KRISTEN (cytoplasmic reactivity) positive patterns reported include reticular/AMA, discrete/GW body-like, polar/golgi-like, cytoplasmic speckled or rods and rings. All positive patterns are reported to endpoint titers (1:2560). Reported patterns may help guide differential diagnosis, although they may not be specific for individual antibodies or diseases. Mitotic staining patterns not reported. Negative results do not necessarily rule out SARD. Performed By: [facility] [address] [place] [address] Efficiency Expert: Bryce Davenport MD, PhD CLIA Number: [id number] Dick Osman APRN LAB BLOOD ORDERABLES Final Res ult [facility] ([facility]) [address] [place] [address] documented in this encounter Visit Diagnoses Diagnosis KRISTEN positive- Primary Arthralgia of both knees Fibromyalgia Unspecified myalgia and myositis Raynaud's disease without gangrene Esophageal dysphagia Dysphagia, pharyngoesophageal phase documented in this encounter Additional Health Concerns Assessment Noted Time A fall risk assessment has been complete d for the patient 02/11/2025 9:54 AM EDT A Body Mass Index follow-up plan has been documented for the patient 02/11/2025 10:54 AM EDT documented as of this encounter Care Teams Legger Press Operator Relationship Specialty Start Date End Date Mary Ann Betancourt APRN [address] [place] [address] PCP - General 01/14/25 documented as of this encounter
--- OUTSIDE RECORDS SUMMARY | 2025-02-18 10:45 | XMS_ITS | Patient Health Record ---
Author Organization [facility]. Address [address] [place] [id number] Care Team Providers Care Edge Blacker Name Role Phone Paddy Hui APRN Primary Care Provider SOPHIA Carbajal [facility] [phone] Reason For Referral No Information Plan Of Treatment No Information Insurance Providers Payer Name Payer Address Payer Phone Subscriber Number Group Number Insured Name Patient Relationship to Insured Coverage Start Date Coverage End Date [employer] [address] [place], [place] [id number] Mily Castillo Self - patient is the insured
--- OUTSIDE RECORDS SUMMARY | 2025-02-18 10:45 | XMS_ITS | Encounter Summary ---
Author Organization Healthcare Address [address] [place] [address] Care Team Providers Care Road Equipment Operator Name Role Phone Mary Ann Betancourt JUNITO Primary Care Provider [phone]- [phone] Encounter Details Date Type Department Care Team (Late st Contact Info) Description 02/16/2025 Results Follow-Up [facility] Medicine Specialties [address] [place] [address] Dick Osman APRN [address] [facility] [address] [place] [address] Social History Tobacco Use Types Packs/Day Years Used Date Smoking Tobacco: Never Smokeless Tobacco: Never PHQ-2 Answer Date Recorded Patient Health Questionnaire-2 [...] on file documented as of this encounter Plan of Treatment Upcoming Encounters Date Type Department Care Team (Late st Contact Info) Description 06/16/2025 10:30 AM EST Office Visit [facility] Medicine Specialties [address] [place] [address] Dick Osman APRN [address] [facility] [address] [place] [address] documented as of this encounter Visit Diagnoses Not on filedocumented in this encounter Additional Health Concerns Assessment Noted Time A fall risk assessment has been complete d for the patient 02/11/2025 9:54 AM EDT A Body Mass Index follow-up plan has been documented for the patient 02/11/2025 10:54 AM EDT documented as of this encounter Care Teams Road Equipment Operator Relationship Specialty Start Date End Date Mary Ann Betancourt APRN [address] [place] [address] PCP - General 01/14/25 documented as of this encounter
--- OUTSIDE RECORDS SUMMARY | 2025-02-18 10:45 | XMS_ITS | Encounter Summary ---
Author Organization Healthcare Address [address] [place] [address] Care Team Providers Care Roadway Designer Name Role Phone Mary Ann Betancourt JUNITO Primary Care Provider [phone]- [phone] Encounter Details Date Type Department Care Team (Latest Contact Info) Description 02/11/2025 Travel Social History Tobacco Use Types Packs/Day Years Used Date Smoking Tobacco: Never Smokeless Tobacco: Never PHQ-2 Answer Date Recorded Patient Health Questionnaire-2 Score 0 02/11/2025 AUDIT-C Answer Date Recorded Q1: How often do you have a drink containing alc ohol? Never 02/11/2025 Average Number of Drinks Not on file Frequency of Binge Drinking Not on file 09/2024 Comments Unknown Sex and Gender Information Value Date Recorded Sex Assigned at Not on file Legal Sex Female 1:34 PM EDT Gender Identity Not on file Sexual Orientation Not on file documented as of this encounter Functional Status * Over the past 2 weeks, how often have you been bothered by any of the following problems? Question Answer Date of Assessment Author Little interest or pleasure in doing things Not at all 02/11/2025 9:53 AM EDT Sona Bolaños Feeling down, depressed, or hopeless Not at all 02/11/2025 9:53 AM ADENT Sona Bolaños Patient Health Questionnaire -2 Score 0 02/11/2025 9:53 AM EDT Sona Bolaños documented as of this encounter Plan of Treatment Upcoming Encounters Date Type Department Care Team ( Contact Info) Description 06/16/2025 10:30 AM EST [facility] Visit [facility] Medicine Specialties [address] [place] [address] Dick Osman, STATISTICAL TYPIST [address] [place] [address] documented as of this encounter Visit Diagnoses Not on filedocumented in this encounter Additional Health Concerns Assessment Noted Time A fall risk assessment has been complete d for the patient 02/11/2025 9:54 AM EDT A Body Mass Index follow-up plan has been documented for the patient 02/11/2025 10:54 AM EDT documented as of this encounter Care Teams Roadway Designer Relationship Specialty Start Date End Date Mary Ann Betancourt APRN [address] [place] [address] PCP - General 01/14/25 documented as of this encounter
--- OUTSIDE RECORDS SUMMARY | 2025-02-18 10:45 | XMS_ITS | Clinical Summary ---
Author Organization Healthcare Address [address] [place] [address] Care Team Providers Care Computer System Specialist Name Role Phone Mary Ann Betancourt Kaitlin WILD Primary Care Provider [phone]- [phone] Allergies No known active allergies Medications doxycycline (Vibramycin) 100 MG capsule TAKE ONE CAPSULE BY MOUTH TWICE DAILY FOR FOURTEEN DAYS -- FINISH ALL MEDICINE -- --TAKE WITH FOOD-- 5 Active DULoxetine (Cymbalta) [address] capsule TAKE ONE CAPSULE BY MOUTH TWICE DAILY STOP FLUOXETINE 5 Active FeroSul 325 (65 Fe) MG tablet Take 1 tablet by mouth 2 times a day. 5 Active gabapentin (Neurontin) 300 MG capsule TAKE ONE CAPSULE BY MOUTH THREE TIMES DAILY MAY CAUSE DROWSINESS 5 Active hydrOXYzine HCl (Atarax) 50 MG tablet Take 1 tablet by mouth 3 times a day as needed for anxiety. 5 Active Linzess 145 MCG capsule 5 Active naproxen (Naprosyn) 500 MG tablet TAKE ONE TABLET BY MOUTH TWICE DAILY --TAKE WITH FOOD-- 5 Active omeprazole (PriLOSEC) [address] capsule 5 Active tiZANidine (Zanaflex) 4 MG tablet 5 Active Encounters Date Type Department Care Team Description 02/16/2025 Results [facility] [address] [place] [address] Dick Osman APRN 02/11/2025 9:30 AM EDT Consult [facility] [address], [address] [place] [id number] Dick Osman APRN KRISTEN positive (Primary Dx); Arthralgia of both knees; Fibromyalgia; Raynaud's disease without gangrene; Esophageal dysphagia 02/11/2025 Travel from Last 3 Months Social History Tobacco Use Types Packs/Day Years [...] on file Sexual Orientation Not on file Last Filed Vital Signs Vital Sign Reading [...] Mass Index 36.91 02/11/2025 9:45 AM EDT Plan of Treatment Upcoming Encounters Date Type Department Care Team (Late st Contact Info) Description 06/16/2025 10:30 AM EST Office Visit [facility] [address] [place] [address] Dick Osman, JUNITO [address] [place] [address] Health Maintenance Due Date Last Done Comments [facility]-HIV Screening 1968 [facility]-Hepatitis C Screening 1968 [facility]-/Child/Adol SDOH Screenings 1968 [facility]- SDOH Screenings 1986 [facility]-Adult SDOH Screenings 1986 [facility]-DTaP,Tdap,and Td Vaccine s (1 - Tdap) 1987 [facility]-Hepatitis B Vaccines (1 of 3 - 19+ 3-dose series) 1987 [facility]-Pap Smear 1989 [facility]-Cervical Cancer Screening 1998 [facility]-HPV/Cotest 1998 CT Colonography 2013 Colonoscopy 2013 FIT-DNA 2013 FIT 2013 FOBT 2013 Sigmoidoscopy 2013 [facility]-Colorectal Cancer Screening 2013 [facility]-Breast Cancer Screening 2018 [facility]-Pneumococcal Vaccine: 50 + Years (1 of 1 - PCV) 2018 [facility]-Zoster Vaccines (1 of 2) 2018 MUT-XUENA-90 Vaccine (1 - 20 24-25 season) 2024 [facility]-Influenza Vaccine (#1) 2025 [facility]-Depression Screening 02/11/2026 02/11/2025 [facility]-Obesity Intervention Completed 02/11/2025 HPV Vaccines Aged Out No longer eligi ble based on patient's age to complete this topic [facility]-HIB Vaccines Aged Out No longer e ligible based on patient's age to complete this topic [facility]-Hepatitis A Vaccines Aged Out No longer eligible based on patient's age to complete this topic [facility]-IPV Vaccines Aged Out No longer e ligible based on patient's age to complete this topic [facility]-Rotavirus Vaccines Aged Out No lo nger eligible based on patient's age to complete this topic Procedures Procedure Name Priority Date/Time Associated Diagnosis Comments PROTEIN, URINE, RANDOM WITH CREATININE Routine 02/11/2025 12:01 PM EDT KRISTEN positive Arthralgia of both knees ANTINUCLEAR ANTIBODY (KRISTEN) WITH HEP-2 SUBSTRATE, IGG BY IFA (SO) Routine 02/11/2025 11:21 AM EDT KRISTEN positive Arthralgia of both knees DOUBLE-STRANDED DNA (DSDNA) ANTIBODY, IGG BY IFA (SO) Routine 02/11/2025 11:21 AM EDT KRISTEN positive Arthralgia of both knees C3 COMPLEMENT Routine 02/11/2025 11:21 AM EDT KRISTEN positive Arthralgia of both knees C4 COMPLEMENT Routine 02/11/2025 11:21 AM EDT KRISTEN positive Arthralgia of both knees BURDICK/NURSE EMERGENCY ROOM (VIANEY) ANTIBODY, IGG (SO) Routine 02/11/2025 11:21 AM EDT KRISTEN positive Arthralgia of both knees EXTRACTABLE NUCLEAR ANTIGEN ANTIBODIES (SSA 52, SSA 60, AND SSB) (SO) Routine 02/11/2025 11:21 AM EDT KRISTEN positive Arthralgia of both knees BURDICK (VIANEY) ANTIBODY, IGG (SO) Routine 02/11/2025 11:21 AM EDT KRISTEN positive Arthralgia of both knees THYROID PEROXIDASE ANTIBODY Routine 02/11/2025 11:21 AM EDT KRISTEN positive Arthralgia of both knees C-REACTIVE PROTEIN, PLASMA Routine 02/11/2025 11:21 AM EDT KRISTEN positive Arthralgia of both knees SEDIMENTATION RATE, AUTOMATED Routine 02/11/2025 11:21 AM EDT KRISTEN positive Arthralgia of both knees CBC WITH AUTO DIFFERENTIAL Routine 02/11/2025 11:21 AM EDT KRISTEN positive Arthralgia of both knees COMPREHENSIVE METABOLIC PANEL, PLASMA Routine 02/11/2025 11:21 AM EDT KRISTEN positive Arthralgia of both knees URIC ACID, PLASMA Routine 02/11/2025 11: 21 AM EDT KRISTEN positive Arthralgia of both knees SCLERODERMA (SCL-70) (VIANEY) ANTIBODY, IGG (SO) Routine 02/11/2025 11:21 AM EDT Raynaud's disease without gangrene Esophageal dysphagia RNA POLYMERASE III ANTIBODY, IGG (SO) Routine 02/11/2025 11:21 AM EDT Raynaud's disease without gangrene Esophageal dysphagia CENTROMERE ANTIBODY, IGG (SO) Routine 02/11/2025 11:21 AM EDT Raynaud's disease without gangrene Esophageal dysphagia from Last 3 Months Results * Protein, Random, Urine with Creatinine (02/11/2025 12:01 PM EDT) Protein, Urine 42 mg/dL 02/11/2025 1:10 PM EDT [facility] Creatinine, Urine 336 mg/dL 02/11/2025 1:10 PM EDT [facility] Protein/Creatin ine Ratio 0.1 mg/mg Creat 02/11/2025 1:10 PM EDT [facility] Urine Urine specimen obtained by clean catch procedure / Unknown Non-blood Collection / Unknown 02/11/2025 12:01 PM EDT 02/11/2025 12:01 PM EDT Dick Osman APRN LAB URINE ORDERABLES Final Res ult [facility] [address] [place] [address] * RNA Polymerase III Antibody, IgG (02/11/2025 11:21 AM EDT) RNA Polymerase III Antibody, IgG 4 0 - 19 Units 02/12/2025 10:51 PM EDT [facility] (JOSE) Blood Venous blood specimen / Unknown Venipuncture / Unknown 02/11/2025 11:21 AM EDT 02/11/2025 11:21 AM EDT Narrative [facility] (JOSE) - 02/12/2025 10:51 PM EDT INTERPRETIVE INFORMATION: [...] antibodies associated with SSc, including centromere, Scl-70, U3-NURSE EMERGENCY ROOM, PM/Scl, or Th/To. Performed By: [facility] [address] [place] [address] Manpower Development Manager: Bryce Davenport MD, PhD CLIA Number: [id number] Dick Osman APRN LAB BLOOD ORDERABLES Final Res ult [employer]) [address] [place], [place] [id number] * Centromere Antibody, IgG (02/11/2025 11:21 AM EDT) Centromere Ab, IgG 0 0 - 40 AU/mL 02/12/2025 11:30 PM EDT [facility] (Nu3) Blood Venous blood specimen / Unknown Venipuncture / Unknown 02/11/2025 11:21 AM EDT 02/11/2025 11:21 AM EDT Narrative [employer]) - 02/12/2025 11:30 PM EDT INTERPRETIVE INFORMATION: [...] other antibodies associated with SSc, including Scl-70, U3-NURSE EMERGENCY ROOM, PM/Scl, or Th/To. Performed By: [facility] [address] [place] [id number] Manpower Development Manager: Bryce Davenport MD, PhD CLIA Number: [id number] Dick Osman APRN LAB BLOOD ORDERABLES Final Res ult [employer]) [address] [place] [address] * Burdick (VIANEY) Antibody, IgG (02/11/2025 11:21 AM EDT) Burdick (VIANEY) Antibody, IgG 4 0 - 40 AU/mL 02/12/2025 11:30 PM EDT [facility] (Nu[facility]) Serum 02/11/2025 11:2 1 AM EDT 02/11/2025 11:21 AM EDT Narrative [employer]) - 02/12/2025 11:30 PM EDT INTERPRETIVE INFORMATION: [...] associations with SLE clinical manifestations. Performed By: [facility] [address] [place] [address] Manpower Development Manager: Bryce Davenport MD, PhD CLIA Number: [id number] Dick Osman BARREL CHARRER HELPER LAB REF LAB BLOOD AND FLUID OR D Final Result [facility] (Nu3) [address] [place] [address] * ENAII (02/11/2025 11:21 AM EDT) SSA-52 (RO52) (VIANEY) Antibody, IgG 1 0 - 40 AU/mL 02/12/2025 11:30 PM EDT [facility] (Nu3) SSA-60 (RO60) (VIANEY) Antibody, IgG 0 0 - 40 AU/mL 02/12/2025 11:30 PM EDT [facility] (Nu3) SSB (LA) (VIANEY) Antibody, IgG 0 0 - 40 AU/mL 02/12/2025 11:30 PM EDT [facility] (Nu3) Blood Venous blood specimen / Unknown Venipuncture / Unknown 02/11/2025 11:21 AM EDT 02/11/2025 11:21 AM EDT Narrative [facility] (Nu3) - 02/12/2025 11:30 PM EDT INTERPRETIVE INFORMATION: [...] (PSS) also have this antibody. Performed By: [facility] [address] [place] [address] Manpower Development Manager: Bryce Davenport MD, PhD CLIA Number: [id number] Dick Osman APRN LAB BLOOD ORDERABLES Final Res ult [employer]) [address] [place], [place] [id number] * ENAI (02/11/2025 11:21 AM EDT) Burdick/NURSE EMERGENCY ROOM (VINAEY) Ab, IgG 2 0 - 19 Units 02/13/2025 11:28 PM EDT [email or web address] CHARLEE) Blood Venous blood specimen / Unknown Venipuncture / Unknown 02/11/2025 11:21 AM EDT 02/11/2025 11:21 AM EDT Narrative [facility] CHARLEE) - 02/13/2025 11:28 PM EDT INTERPRETIVE INFORMATION: Burdick/NURSE EMERGENCY ROOM (VIANEY) Antibody, IgG 19 Units or Less ............. Negative 20 to 39 Units ............... Weak Positive 40 to 80 Units ............... Moderate Positive 81 Units or greater .......... Strong Positive Burdick/NURSE EMERGENCY ROOM antibodies are frequently seen in patients with mixed connective tissue disease (MCTD) and are also associated with other systemic autoimmune rheumatic diseases (SARDs) such as systemic lupus erythematosus (SLE), systemic sclerosis, and myositis. Antibodies targeting the Burdick/NURSE EMERGENCY ROOM antigenic complex also recognize Burdick antigens, therefore, the Burdick antibody response must be considered when interpreting these results. Performed By: [facility] [address] [place] [address] Manpower Development Manager: Bryce Davenport MD, PhD CLIA Number: [id number] Dick Osman APRN LAB BLOOD ORDERABLES Final Res ult Performing Organization Address City/[facility] Co de Phone Number [facility] [employer]) [address] [place] [address] * Thyroid Peroxidase Antibody (02/11/2025 11:21 AM EDT) Thyroid Peroxidase Antibody <5 <=8 IU/mL 02/11/2025 3:38 PM EDT [facility] Blood Venous blood specimen / Unknown Venipuncture / Unknown 02/11/2025 11:21 AM EDT 02/11/2025 11:21 AM EDT Dick Osman APRN LAB BLOOD ORDERABLES Final Res ult [facility] [address] [place] [address] * Anti-scleroderma antibody (02/11/2025 11:21 AM EDT) SCLERODERMA (SCL-70) (VIANEY) ANTIBODY, IGG 1 0 - 40 AU/mL 02/12/2025 11:30 PM EDT [facility] [employer]) Blood Venous blood specimen / Unknown Venipuncture / Unknown 02/11/2025 11:21 AM EDT 02/11/2025 11:21 AM EDT Narrative [facility] [employer]) - 02/12/2025 11:30 PM EDT INTERPRETIVE INFORMATION: [...] testing for centromere, RNA polymerase III and U3-NURSE EMERGENCY ROOM, PM/Scl, or Th/To antibodies. Performed By: [facility] [address] [place] [address] Manpower Development Manager: Bryce Davenport MD, PhD CLIA Number: [id number] Dick Osman APRN LAB BLOOD ORDERABLES Final Res ult [employer]) [address] [place], [place] [id number] * Double-Stranded DNA (dsDNA) Antibody, IgG by IFA (02/11/2025 11:21 AM EDT) Double-Strande d DNA (dsDNA) Ab IgG IFA <1:10 <1:10 02/13/2025 4:58 PM EDT [facility] [employer] (JOSE) Blood Venous blood specimen / Unknown Venipuncture / Unknown 02/11/2025 11:21 AM EDT 02/11/2025 11:21 AM EDT Narrative [facility]) - 02/13/2025 4:58 PM EDT [...] recommendations for testing may be found at https://ciValue/content/gwzgprtavg-pvpzxg-xaqweudz. Performed By: [facility] [address] [place] [address] Manpower Development Manager: Bryce Davenport MD, PhD CLIA Number: [id number] us Dick Osman APRN LAB BLOOD ORDERABLES Final Res ult [facility] (JOSE) [address] [place] [address] * Sedimentation Rate, Automated (02/11/2025 11:21 AM EDT) [facility] Signature Sedimentation Rate 3 <30 mm/hr 2024 1:34 PM EDT [facility] Blood Venous blood specimen / Unknown Venipuncture / Unknown 02/11/2025 11:21 AM EDT 02/11/2025 11:21 AM EDT Dick Osman [facility] LAB BLOOD ORDERABLES Final Res ult [facility] [address] [place] [address] * (ABNORMAL) CBC and Differential (02/11/2025 11:21 AM EDT) [facility] Signature WBC Count 6.45 3.70 - 10.30 10*3/uL LAB HEMATOLOGY METHOD 02/11/2025 1:09 PM EDT [facility] RBC Count 3.76(L) 3.90 - 5.20 10*6/uL LAB HEMATOLOGY METHOD 02/11/2025 1:09 PM EDT [facility] HGB 11.2 11.2 - 15.7 g/dL LAB HEMATOLOGY METHOD 02/11/2025 1:09 PM EDT [facility] HCT 33.4(L) 34.0 - 45.0 % LAB HEMATOLOGY METHOD 02/11/2025 1:09 PM EDT [facility] Platelet Count 342 155 - 369 10*3/uL LAB HEMATOLOGY METHOD 02/11/2025 1:09 PM EDT [facility] MCV 89 79 - 98 fL LAB HEMATOLOGY METHOD 02/11/2025 1:09 PM EDT [facility] MCH 29.8 26.0 - 32.0 pg LAB HEMATOLOGY METHOD 02/11/2025 1:09 PM EDT [facility] MCHC 33.5 30.7 - 35.5 g/dL LAB HEMATOLOGY METHOD 02/11/2025 1:09 PM EDT [facility] RDW 14.1 11.5 - 14.5 % LAB HEMATOLOGY METHOD 02/11/2025 1:09 PM EDT [facility] MPV 9.3 8.8 - 12.5 fL LAB HEMATOLOGY METHOD 02/11/2025 1:09 PM EDT [facility] nRBC 0.0 <=0.0 per 100 WBCs LAB HEMATOLOGY METHOD 02/11/2025 1:09 PM EDT [facility] Differential Type Automated LAB HEMATOLOGY METHOD 02/11/2025 1:09 PM EDT [facility] Neutrophils % 53 % LAB HEMATOLOGY METHOD 02/11/2025 1:09 PM EDT [facility] Lymphocytes % 32 % LAB HEMATOLOGY METHOD 02/11/2025 1:09 PM EDT [facility] Monocytes % 9 % LAB HEMATOLOGY METHOD 02/11/2025 1:09 PM EDT [facility] Eosinophils % 5 % LAB HEMATOLOGY METHOD 02/11/2025 1:09 PM EDT [facility] Basophils % 1 % LAB HEMATOLOGY METHOD 02/11/2025 1:09 PM EDT [facility] Immature Granulocytes % 0 % LAB HEMATOLOGY METHOD 02/11/2025 1:09 PM EDT [facility] Neutrophils Absolute 3.49 1.60 - 6.10 10*3/uL LAB HEMATOLOGY METHOD 02/11/2025 1:09 PM EDT [facility] Lymphocytes Absolute 2.04 1.20 - 3.90 10*3/uL LAB HEMATOLOGY METHOD 02/11/2025 1:09 PM EDT [facility] Monocytes Absolute 0.56 0.30 - 0.90 10*3/uL LAB HEMATOLOGY METHOD 02/11/2025 1:09 PM EDT [facility] Eosinophils Absolute 0.30 0.00 - 0.50 10*3/uL LAB HEMATOLOGY METHOD 02/11/2025 1:09 PM EDT [facility] Basophils Absolute 0.05 0.00 - 0.10 10*3/uL LAB HEMATOLOGY METHOD 02/11/2025 1:09 PM EDT [facility] Immature Granulocytes Absolute 0.01 0.00 - 0.06 10*3/uL LAB HEMATOLOGY METHOD 02/11/2025 1:09 PM EDT [facility] Blood Venous blood specimen / Unknown Venipuncture / Unknown 02/11/2025 11:21 AM EDT 02/11/2025 11:21 AM EDT Narrative [facility] - 02/11/2025 1:09 PM EDT Therapeutic decision making should be based on absolute values, rather than percentages. Dick Osman APRN LAB BLOOD ORDERABLES Final Res ult [facility] [address] [place] [address] * C3 Complement (02/11/2025 11:21 AM EDT) C3 Complement 119 84 - 166 mg/dL 02/11/2025 1:04 PM EDT [facility] Blood Venous blood specimen / Unknown Venipuncture / Unknown 02/11/2025 11:21 AM EDT 02/11/2025 11:21 AM EDT Dick Osman APRN LAB BLOOD ORDERABLES Final Res ult Performing Organization Address City/[facility] Co de Phone Number [facility] [address] [place] [address] * C4 Complement (02/11/2025 11:21 AM EDT) Pathologist [facility] C4 Complement 17 13 - 36 mg/dL 02/11/2025 1:04 PM EDT [facility] Blood Venous blood specimen / Unknown Venipuncture / Unknown 02/11/2025 11:21 AM EDT 02/11/2025 11:21 AM EDT Dick Osman BARREL CHARRER HELPER LAB BLOOD ORDERABLES Final Res ult Performing Organization Address [facility] Co de Phone Number [facility] [address] [place] [address] * C-Reactive Protein, Plasma (02/11/2025 11:21 AM EDT) [facility] [address] CRP, Plasma 3.6 <=8.0 mg/L 02/11/2025 1:21 PM EDT [facility] Blood Venous blood specimen / Unknown Venipuncture / Unknown 02/11/2025 11:21 AM EDT 02/11/2025 11:21 AM EDT Narrative [facility] - 02/11/2025 1:21 PM EDT This CRP test is appropriate for assessment of infection, systemic inflammation and/or tissue injury. To assess cardiovascular disease risk order high sensitivity CRP (CRPH). Dick Osman APRN LAB BLOOD ORDERABLES Final Res ult Performing Organization Address [facility] Co de Phone Number [facility] [address] [place] [address] * Antinuclear Antibody (KRISTEN), HEp-2, IgG (02/11/2025 11:21 AM EDT) [facility] [address] KRISTEN INTERPRETIVE COMMENT See Note 02/14/2025 7:11 AM EDT [facility] (JOSE) Anti Nuc Ab Screen <1:80 <1:80 02/14/2025 7:11 AM EDT [facility] (JOSE) Blood Venous blood specimen / Unknown Venipuncture / Unknown 02/11/2025 11:21 AM EDT 02/11/2025 11:21 AM EDT Narrative [facility]) - 02/14/2025 7:11 AM EDT Antinuclear antibodies [...] not necessarily rule out SARD. Performed By: [facility] [address] [place] [address] Manpower Development Manager: Bryce Davenport MD, PhD CLIA Number: [id number] Dick Osman APRN LAB BLOOD ORDERABLES Final Res ult [facility] CHARLE[facility]) [address] [place] [address] * Uric acid (02/11/2025 11:21 AM EDT) Uric Acid, Plasma 3.9 3.1 - 7.1 mg/dL 02/11/2025 1:21 PM EDT [facility] Blood Venous blood specimen / Unknown Venipuncture / Unknown 02/11/2025 11:21 AM EDT 02/11/2025 11:21 AM EDT us Dick Osman APRN LAB BLOOD ORDERABLES Final Res ult [facility] [address] [place] [address] * (ABNORMAL) Comprehensive Metabolic Panel, Plasma (02/11/2025 11:21 AM EDT) Glucose, Plasma 111(H) 74 - 99 mg/dL 02/11/2025 1:21 PM EDT [facility] BUN, Plasma 13 7 - 21 mg/dL 02/11/2025 1:21 PM EDT [facility] Creatinine, Plasma 0.76 0.60 - 1.10 mg/dL 02/11/2025 1:21 PM EDT [facility] BUN/Creatinine Ratio 17 02/11/2025 1:21 PM EDT [facility] Sodium, Plasma 144 136 - 145 mmol/L 02/11/2025 1:21 PM EDT [facility] Potassium, Plasma 3.4(L) 3.6 - 4.9 mmol/L 02/11/2025 1:21 PM EDT [facility] Chloride, Plasma 107 97 - 107 mmol/L 02/11/2025 1:21 PM EDT [facility] CO2, Plasma 25 22 - 29 mmol/L 02/11/2025 1:21 PM EDT [facility] Anion Gap 12 6 - 16 mmol/L 02/11/2025 1:21 PM EDT [facility] Total Calcium, Plasma 8.7(L) 8.9 - 10.2 mg/dL 02/11/2025 1:21 PM EDT [facility] Total Protein 6.4 6.3 - 7.9 g/dL 02/11/2025 1:21 PM EDT [facility] Albumin, Plasma 4.1 3.5 - 5.2 g/dL 02/11/2025 1:21 PM EDT [facility] AST, Plasma 19 10 - 35 U/L 02/11/2025 1:21 PM EDT [facility] ALT, Plasma 15 10 - 35 U/L 02/11/2025 1:21 PM EDT [facility] Alkaline Phosphatase, Plasma 117 46 - 142 U/L 02/11/2025 1:21 PM EDT [facility] Total Bilirubin, Plasma 0.3 0.2 - 1.1 mg/dL 02/11/2025 1:21 PM EDT [facility] eGFRcr 92.1 mL/min/1.7 3m*2 02/11/2025 1:21 PM EDT [facility] Comment:Reported eGFRcr in m L/min/1.73m2 is based the CKD-EPI 2020 equation that does not use a race coefficient. Blood Venous blood specimen / Unknown Venipuncture / Unknown 02/11/2025 11:21 AM EDT 02/11/2025 11:21 AM EDT Dick Osman APRN LAB BLOOD ORDERABLES Final Res ult [facility] [address] [place] [address] from Last 3 Months Insurance [facility] MEDICAID Care Teams Computer System Specialist Relationship Specialty Start Date End Date Mary Ann Betancourt APRN [address] [place] [address] PCP - General 01/14/25
== END 2025-02-17 23:59 | disposition home or self-care (01) ==
LOC: LAB.DROPOF 02-18 10:41
PROVIDERS: PCP Nurse Practitioner Family; Visit Provider Nurse Practitioner Family
DX: E53.8 Deficiency of other specified B group vitamins (principal); D50.9 Iron deficiency anemia, unspecified

== ENCOUNTER 2025-02-17 12:17 | Outpatient (RCR) | payer MEDICAID, SELFPAY ==
[2025-02-17 14:04] LABS: Hematocrit 33.2 % (37.0-47.0); Hemoglobin 11.1 g/dL (12.2-16.2); Immature Granulocytes % 0.2 %; Mean Corpuscular HGB Conc 33.4 g/dL (31.8-35.4); Mean Corpuscular Hemoglobin 29.8 pg (27.0-31.2); Mean Corpuscular Volume 89.0 fl (81-99); Nucleated Red Blood Cells % 0 %; Platelet Count 320 K/mm3 (142-424); Red Blood Count 3.73 M/mm3 (4.20-5.40); Red Cell Distribution Width-SD 45.7 fL; White Blood Count 5.0 K/mm3 (4.8-10.8)
[2025-02-17 15:22] LABS: Vitamin B12 526 pg/mL (239-931)
[2025-02-17 16:30] LABS: Ferritin 31.4 ng/ml (11.1-264)
== END 2025-02-17 23:59 | disposition home or self-care (01) ==
LOC: PT 12:17
PROVIDERS: Visit Provider Nurse Practitioner Family
DX: M23.52 Chronic instability of knee, left knee (principal); M17.12 Unilateral primary osteoarthritis, left knee; M23.92 Unspecified internal derangement of left knee; E53.8 Deficiency of other specified B group vitamins; D50.9 Iron deficiency anemia, unspecified; S83.512A Sprain of anterior cruciate ligament of left knee, initial encounter
CPT/HCPCS: 82607; 82728; 85025; 97763